=== PATIENT | male | born 1955 | race Caucasian/White ===

== ENCOUNTER → 2016-06-20 | Outpatient (CLI) | payer OTHER ==
[~2016-06-20] MED LIST: CHOL100010 PO; CYAN500T PO; ENAL20TA PO; ESOM20CA PO; LEVO100T PO; METF500T5 PO; NXM/40 PO; TADA10TA PO
[2016-06-20 12:48] LABS: ESTIMATED AVERAGE GLUCOSE 105 mg/dl; HA1C FLAG Normal (Normal)
[2016-06-20 13:02] LABS: ALT/SGPT 26 U/L (12-78); BLOOD UREA NITROGEN 19 mg/dl (7-18); BUN/CREATININE RATIO 17.3 (10-20); CALCIUM 8.7 mg/dl (8.5-10.1); CARBON DIOXIDE 27 mmol/L (21-32); CHLORIDE 103 mmol/L (98-107); GLUCOSE 82 mg/dl (70-99); POTASSIUM 4.2 mmol/L (3.5-5.1); SODIUM 139 mmol/L (136-145)
[2016-06-20 13:07] LABS: ALB/GLOB RATIO 1.5 (0.9-2); ALKALINE PHOSPHATASE 39 U/L (45-117); AST/SGOT 22 U/L (15-37); CHOLESTEROL 97 mg/dl (0-200); CHOLESTEROL/HDL RATIO 1.7; HDL CHOLESTEROL 57 mg/dl; LDL CHOLESTEROL CALCULATED 28 mg/dl; TRIGLYCERIDES 59 mg/dl (0-150); VERY LOW DENSITY LIPOPROT CALC 12 mg/dl
== END | disposition home or self-care (01) ==
LOC: C.LAB1850 11:38
PROVIDERS: ATTEND Internal Medicine
DX: E11.9 Type 2 diabetes mellitus without complications (principal); Z12.5 Encounter for screening for malignant neoplasm of prostate

== ENCOUNTER → 2017-01-24 | Outpatient (CLI) | payer OTHER ==
[2017-01-24 12:21] LABS: BASO % 0.3 %; BASO ABS # 0.02 K/uL (0-0.2); COMPLETE YES; EOS % 2.7 %; HEMATOCRIT 42.2 % (42-52); IG% 0.2 %; LYMPH % 21.8 %; MEAN CELL VOLUME 87.4 fL (80-100); MEAN CORPUSCULAR HGB CONC 34.4 g/dl (32-36); MONO % 10.1 %; NEUT % 64.9 %; PLATELET COUNT 200 K/uL (130-400); RED BLOOD COUNT 4.83 M/uL (4.7-6.1); WHITE BLOOD COUNT 5.95 K/uL (4.8-10.8)
[2017-01-24 12:34] LABS: ESTIMATED AVERAGE GLUCOSE 117 mg/dl; HA1C FLAG Normal (Normal)
[2017-01-24 12:39] LABS: ALT/SGPT 22 U/L (12-78); AST/SGOT 23 U/L (15-37); BLOOD UREA NITROGEN 15 mg/dl (7-18); BUN/CREATININE RATIO 12.8 (10-20); CALCIUM 8.9 mg/dl (8.5-10.1); CARBON DIOXIDE 28 mmol/L (21-32); CHLORIDE 104 mmol/L (98-107); GLUCOSE 93 mg/dl (70-99); POTASSIUM 4.2 mmol/L (3.5-5.1); SODIUM 137 mmol/L (136-145)
[2017-01-24 12:49] LABS: ALB/GLOB RATIO 1.1 (0.9-2); ALKALINE PHOSPHATASE 57 U/L (45-117); THYROID STIMULATING HORMONE 0.876 uIu/ml (0.300-4.500)
[2017-01-24 15:12] LABS: HEPATITIS B AB NEG
== END | disposition home or self-care (01) ==
LOC: C.LAB1850 10:37
PROVIDERS: ATTEND Internal Medicine
DX: E03.9 Hypothyroidism, unspecified (principal); E11.9 Type 2 diabetes mellitus without complications; R53.83 Other fatigue

== ENCOUNTER → 2017-04-18 | Outpatient (CLI) | payer OTHER ==
[~2017-04-18] MED LIST changes: +ATOR10TA82 PO; +CHOL1000 PO; -CHOL100010 PO; -ESOM20CA PO; +LVMI SC
--- NOTE | 2017-04-18 13:19 | DIAGNOSTIC IMAGING REPORT ---
AP STANDING VIEW OF BOTH KNEES; 3 VIEWS LEFT KNEE CLINICAL HISTORY: Left knee pain. FINDINGS: An AP standing view of both knees with crosstable lateral, tunnel, and sunrise views of the left knee are obtained. No prior studies are available for comparison at the time of dictation. The skeletal structures are well mineralized. No fracture is seen. There is minimal degenerative narrowing at the patellofemoral articulation. The joint spaces of the medial and lateral compartment are preserved. There is no evidence of osteochondral defect on the tunnel image. There is a large superior patellar enthesophyte. A joint effusion is identified. Prepatellar soft tissue edema is noted. A tiny metallic foreign body suggested medial to the patella, only seen on the sunrise view. Survey images of the right knee on the frontal view show no abnormality. IMPRESSION: 1. Prepatellar soft tissue swelling and joint effusion. No acute bony abnormality is seen in the left knee. 2. Minimal degenerative change as above. 3. Question a punctate metallic foreign body in the medial knee seen only on the tunnel view. Electronically signed by: Juan Zavala M.D. 04/18/2017 1:17 PM Dictated Date/Time: 04/18/2017 1:15 PM
== END | disposition home or self-care (01) ==
LOC: C.RDSM 13:22
PROVIDERS: ATTEND Internal Medicine
DX: M17.0 Bilateral primary osteoarthritis of knee (principal); M25.461 Effusion, right knee; M25.462 Effusion, left knee

== ENCOUNTER → 2017-04-25 | Outpatient (CLI) | payer OTHER ==
--- NOTE | 2017-04-26 08:03 | DIAGNOSTIC IMAGING REPORT ---
L LOWER EXT JOINT WITHOUT CLINICAL HISTORY: 61 years-old Male presenting with LEFT KNEE PAIN, history of injury 2 weeks ago while playing [email or web address], pain and swelling since then primarily along the anterior aspect of the knee. TECHNIQUE: Multisequence, multiplanar MR imaging of the left knee was performed without the use of intravenous contrast. IV contrast: None. COMPARISON: Plain radiographs of the left knee from 04/18/2017. FINDINGS: Localizer images: Unremarkable. Bony edema throughout the patella without a focal fracture plane suggest bony contusion. No other sites of bony edema. Minimal irregularity pancreas signal intensity of the articular cartilage of the median prominence of the patella suggesting grade 1 cartilage injury. Articular cartilage otherwise intact. Medial and lateral menisci intact. Meniscocapsular ligaments intact. Anterior and posterior cruciate ligaments intact. Medial collateral ligament intact. Lateral collateral ligament complex including the biceps femoris tendon, popliteus tendon, fibular ligament, and iliotibial band intact. Small knee joint effusion. No popliteal cyst. Prepatellar and infrapatellar subcutaneous edema. Increased signal intensity within the insertion of the quadriceps tendon with minimal adjacent bony fluid signal intensity along the deep and medial fibers consistent with partial tear (series 7 image 17; series 4 image 6). No retraction of tendon fibers is evident. Patellar tendon intact. Otherwise normal signal intensity of the muscles and normal muscle bulk. IMPRESSION: 1. Findings consistent with partial tear of the quadriceps tendon. 2. Reactive bony edema throughout the patella. 3. Grade 1 cartilage injury of the median prominence of the patella. 4. Small knee joint effusion. Electronically signed by: Prakash Escamilla M.D. 04/26/2017 8:02 AM Dictated Date/Time: 04/26/2017 7:55 AM
== END | disposition home or self-care (01) ==
LOC: C.MRI 19:10
PROVIDERS: ATTEND Internal Medicine
DX: M25.562 Pain in left knee (principal); M94.8X6 Other specified disorders of cartilage, lower leg; M25.461 Effusion, right knee

== ENCOUNTER → 2017-08-14 | Outpatient (CLI) | payer OTHER ==
[2017-08-14 17:11] LABS: ALBUMIN 3.9 gm/dl (3.4-5.0); ALT/SGPT 23 U/L (12-78); AST/SGOT 21 U/L (15-37); BLOOD UREA NITROGEN 19 mg/dl (7-18); CALCIUM 9.1 mg/dl (8.5-10.1); CARBON DIOXIDE 26 mmol/L (21-32); CREATININE 1.06 mg/dl (0.60-1.40); GLUCOSE 108 mg/dl (70-99); POTASSIUM 3.7 mmol/L (3.5-5.1); SODIUM 138 mmol/L (136-145)
[2017-08-14 17:14] LABS: ALKALINE PHOSPHATASE 41 U/L (45-117); CHOLESTEROL 100 mg/dl (0-200); LDL CHOLESTEROL CALCULATED 23 mg/dl; TOTAL PROTEIN 7.2 gm/dl (6.4-8.2)
[2017-08-15 07:39] LABS: HEMOGLOBIN A1C 5.4 % (4.5-5.6)
== END | disposition home or self-care (01) ==
LOC: C.LAB1850 14:59
PROVIDERS: ATTEND Internal Medicine
DX: E11.9 Type 2 diabetes mellitus without complications (principal)